=== PATIENT | male | born 1970 | race African-American/Black ===

== ENCOUNTER 2019-11-30 10:26 | Emergency (ER) | payer MEDICARE ==
[~2019-11-30] VITALS: Ht 167.6 cm; Wt 86.4 kg
[2019-11-30 10:36] VITALS: Ht 167.6 cm; Wt 86.4 kg
[2019-11-30 11:09] LABS: CALC OSMOLALITY 284 mosm/kg (275-300); CARBON DIOXIDE 28.4 mmol/L (21.0-32.0); CHLORIDE - SERUM 102 mmol/L (98-107); CREATININE - SERUM 0.9 mg/dL (0.6-1.3); GLUCOSE 232 mg/dL (74-106); POTASSIUM - SERUM 3.9 mmol/L (3.5-5.1); SODIUM 139 mmol/L (136-145); UREA NITROGEN 12 mg/dL (7-18); eGFR NON AFRICAN AMERICAN > 90 mL/min (90-120)
[2019-11-30 11:15] LABS: ALBUMIN 3.4 g/dL (3.4-5.0); ALKALINE PHOSPHATASE 128 U/L (30-120); ALT (SGPT) 28 U/L (10-68); BILIRUBIN - TOTAL 0.45 mg/dL (0.2-1.3)
[2019-11-30 11:26] LABS: BASOPHILS 0 % (0-2); EOSINOPHILS 2.6 % (0-7); HEMATOCRIT 41.3 % (42.0-54.0); HEMOGLOBIN 13.8 g/dL (13.5-17.5); IMMATURE GRANULOCYTES 0.2 % (0-5); LYMPHOCYTES 31.2 % (15-50); MCH 28.6 pg (26.0-34.0); MCHC 33.4 g/dL (31.0-37.0); MCV 85.5 fL (80.0-100.0); PLATELET COUNT 226 10x3/uL (130-400); RBC 4.83 10x6/uL (4.20-6.10); WBC 8.6 10x3/uL (4.8-10.8)
[2019-11-30] MEDS ORDERED: PROAIR HFA8.5 G1 INH (12:13)
[2019-11-30] MEDS ORDERED: ZPAK PO (12:13)
[2019-11-30 16:11] VITALS: BP 133/59
[2019-12-05 15:08] LABS: AEROBE ID Preliminary report (())
== END 2019-11-30 16:13 | disposition home or self-care (01) ==
LOC: D.ER 10:26
PROVIDERS: Family Medicine
DX: B34.9 Viral infection, unspecified (principal); J40 Bronchitis, not specified as acute or chronic; R50.9 Fever, unspecified; E11.9 Type 2 diabetes mellitus without complications; I10 Essential (primary) hypertension; Z72.0 Tobacco use; Z20.828 Contact with and (suspected) exposure to other viral communicable diseases